=== PATIENT | male | born 1955 | race Caucasian/White ===

== ENCOUNTER 2024-09-18 10:20 | Emergency (ER) | payer MEDICARE, OTHER, SELFPAY ==
[2024-09-18 10:34] VITALS: BP 155/82; PULSE 69; RESP 18; TEMP 36.6; O2SAT 98; BMI 30.5
--- NOTE | 2024-09-18 10:38 | DI.US.S_ITS ---
PROCEDURE: US PERIPH VENOUS LOW EXTREM RT INDICATIONS: DVT rule out TECHNIQUE: Real-time imaging, as well as color and pulse Doppler interrogation, were performed of the lower extremity deep veins from the inguinal ligament to the popliteal fossa, with documentation of the visualized calf veins. COMPARISON: None. FINDINGS: The common femoral, femoral, popliteal, and the visualized calf veins are normally compressible, and free of intraluminal thrombus. Color and pulse Doppler demonstrate normal phasic intraluminal flow. There is normal augmentation response to distal compression maneuver. Note is made of a complex fluid collection at the anterior superior knee margin, measuring up to 0.8 x 6.4 x 12.0 cm. IMPRESSION: No DVT found. Complex fluid collection as discussed, potentially a focal hematoma that is involuting. Please correlate clinically. Dictated by: Kaleb Koroma M.D. on 09/18/2024 at 12:05 Approved by: Kaleb Koroma M.D. on 09/18/2024 at 12:06
--- NOTE | 2024-09-18 11:25 | DI.RAD.S_ITS ---
PROCEDURE: XR KNEE RT 3V INDICATIONS: knee pain TECHNIQUE: 3 views of the knee were acquired. COMPARISON: None. FINDINGS: Bones: No fractures or dislocations. No suspicious bony lesions. Soft tissues: Small suprapatellar joint effusion. No suspicious soft tissue calcifications. IMPRESSION: No acute bony abnormality but there is a small suprapatellar knee joint effusion. Dictated by: Kaleb Koroma M.D. on 09/18/2024 at 12:10 Approved by: Kaleb Koroma M.D. on 09/18/2024 at 12:11
--- NOTE | 2024-09-18 11:25 | DI.RAD.S_ITS ---
PROCEDURE: XR TIBIA FUBULA RT 2V INDICATIONS: knee pain TECHNIQUE: 2 views of the tibia and fibula were acquired. COMPARISON: None. FINDINGS: Bones: No fractures or dislocations. No suspicious bony lesions. Soft tissues: No suspicious soft tissue calcifications or masses. IMPRESSION: No acute bony abnormality. Dictated by: Kaleb Koroma M.D. on 09/18/2024 at 12:11 Approved by: Kaleb Koroma M.D. on 09/18/2024 at 12:11
[2024-09-18 12:26] LABS: Appearance Urine UA SL CLOUDY; Bilirubin Urine UA NEGATIVE (NEGATIVE); Color Urine UA RED; Glucose Urine UA TRACE g/dL (Negative); Ketones Urine UA NEGATIVE (NEGATIVE); Leukocyte Esterase Urine UA NEGATIVE (NEGATIVE); Nitrite Urine UA NEGATIVE (Negative); Occult Blood Urine UA 3+ (Negative); Protein Urine UA TRACE (Negative); RBC Urine >100/HPF (0-5/HPF); Specific Gravity Urine UA 1.015 (1.000-1.035); Urine Volume 10mL (spun); pH Urine UA 7.5 (4.5-8.0)
[2024-09-18 12:27] LABS: Bacteria Urine Occasional (0-1); Culture Indicated Urine Specimen Cultured; Squamous Epithelial Cell Urine None Seen (0-5/HPF); WBC Urine 1-5/HPF (0-5/HPF)
--- NOTE | 2024-09-18 12:35 | DI.CT.S_ITS ---
PROCEDURE: CT LE RT W CON INDICATIONS: knee effusion, swelling, pain, warmth TECHNIQUE: After the administration of intravenous contrast, 3 mm axial sections acquired of the right lower leg from the level of distal femoral shaft to bottom of foot, with coronal and sagittal reformats. COMPARISON: [facility], CR, XR KNEE RT 3V, 09/18/2024, 11:42. [facility], CR, XR TIBIA FIBULA RT 2V, 09/18/2024, 11:42. [facility], US, US PERIPH VENOUS LOW EXTREM RT, 09/18/2024, 11:31. FINDINGS: Image quality: Excellent. Bones: Alignment of right lower leg is anatomic. No fracture or dislocation. No suspicious bony lesions. Mild tricompartmental osteoarthritis is seen in right knee. Bore-tf-tamuvbcw osteoarthritic changes also seen throughout left foot most notably involving tibiotalar joint with suggestion of osteochondral injuries involving talar dome weight-bearing portion measures up to 9 x 6 mm in size. Well-defined plantar calcaneal enthesophyte is seen. No bony erosive changes or abnormal periosteal reaction to suggest osteomyelitis. Soft tissues: There is significant subcutaneous fat stranding and mild overlying skin thickening around right knee , right lower leg extending to dorsal aspect of right foot. No discrete drainable peripherally enhancing fluid collection is seen. Small to moderate right knee joint effusion is noted, no calcified intra-articular loose bodies. There is no enhancing soft tissue mass. No abnormal soft tissue calcifications. IMPRESSION: 1. Suggestion of extensive cellulitis around right knee, right lower leg extending to right foot. No discrete drainable abscess collection is seen. No enhancing soft tissue mass is noted. No abnormal soft tissue calcifications. No full-thickness muscle or tendon rupture. 2. 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 Osteochondral injuries involving weight-bearing portion of talar dome. No acute fracture or dislocation. No CT evidence of osteomyelitis. Dictated by: Kang Sandhu M.D. on 09/18/2024 at 13:47 Approved by: Kang Sandhu M.D. on 09/18/2024 at 14:03
[2024-09-18 13:03] LABS: Add Manual Diff / Slide Review NO; Basophils Absolute Auto 100 /uL (0-100); Basophils Percent Auto 0.8 % (0-2); Eosinophils Absolute Auto 300 /uL (0-450); Eosinophils Percent Auto 3.2 % (2-4); Hematocrit 39.8 % (41-53); Hemoglobin 13.5 g/dL (13.5-17.5); Lymphocytes Absolute Auto 700 /uL (1100-4500); Lymphocytes Percent Auto 7.7 % (25-40); Mean Corpuscular HGB Conc 33.8 % (30-36); Mean Corpuscular Volume 91.8 fL (80-100); Monocytes Absolute Auto 900 /uL (0-900); Monocytes Percent Auto 9.8 % (3-14); Neutrophils Absolute Auto 7300 /uL (1500-7000); Neutrophils Percent Auto 78.5 % (50-75); Platelet Count 362 X10^3/uL (150-400); Red Blood Cell Count 4.34 X10^6/uL (4.5-5.9); Red Cell Distribution Width 12.8 % (11.6-14.8); White Blood Cell Count 9.4 X10^3/uL (4.5-11.0)
[2024-09-18 13:13] LABS: Prothrombin Time 11.4 SECONDS (9.4-12.5)
[2024-09-18 13:15] LABS: PTT Partial Thromboplastin Tim 35 SECONDS (25.1-36.5)
[2024-09-18 13:21] LABS: Alanine Aminotransferase 25 IU/L (<50); Albumin 4.1 g/dL (3.5-5.0); Albumin Globulin Ratio 1.3 (1.0-2.8); Alkaline Phosphatase 92 U/L (38-126); Aspartate Aminotransferase 23 IU/L (17-59); BUN Creatinine Ratio 12.9 (6-22); Bilirubin Total 0.5 mg/dL (0.2-1.3); Blood Urea Nitrogen 11 mg/dL (9-20); C-Reactive Protein Quant 2.4 mg/dL (<1.0); Calcium 9.6 mg/dL (8.4-10.2); Carbon Dioxide 29 mmol/L (22-32); Chloride 102 mmol/L (98-107); Estimated Glomerular Filt Rate > 60 mL/min (>60); Globulin 3.1 g/dL (1.7-4.1); Glucose 110 mg/dL (80-110); HEMOLYSIS < 15 (0-50); Potassium 4.7 mmol/L (3.4-5.1); Sodium 139 mmol/L (137-145); Total Protein 7.2 g/dL (6.3-8.2); Uric Acid 6.3 mg/dL (3.5-8.5)
[2024-09-18 13:23] LABS: Erythrocyte Sedimentation Rate 48 MM/HR (0-15)
[2024-09-18 13:39] VITALS: TEMP 36.9
--- NOTE | 2024-09-18 13:55 | ED.EXTPRO ---
HPI - Extremity Problem <Alma Collins PA-C - Last Filed: 09/18/24 19:55> General Chief complaint: Extremity Problem,Nontraumatic Stated complaint: Right knee pain and swelling Time Seen by Provider: 09/18/24 11:17 Source: patient Mode of arrival: Ambulatory History of Present Illness HPI Narrative: 69-year-old male with past medical history prostate cancer diabetes, hypertension presents to the ED with 6 days of right-sided knee and lower leg pain. Patient states that the pain started spontaneously and he has noted swelling, warmth and pain in the right knee. Patient does have a history of gout, initially suspected this was a gout flare, took a leave with no improvement. Patient does state that this feels different than his usual gout pain. No trauma. No fever, chills, nausea, vomiting. No numbness, tingling, weakness. Patient endorses gross hematuria over the last 2 days. No dysuria, urinary frequency, urinary urgency. Patient spoke with his primary care doctor who sent him to the ED to rule out a DVT. Related Data Home Medications Medication Instructions Recorded Confirmed amlodipine 10 mg tablet 10 mg PO DAILY 09/20/24 09/20/24 escitalopram oxalate 10 mg tablet 10 mg PO DAILY 09/20/24 09/20/24 irbesartan 300 mg tablet 300 mg PO DAILY 09/20/24 09/20/24 metformin 500 mg tablet,extended 500 mg PO DAILY 09/20/24 09/20/24 release 24 hr rosuvastatin 10 mg tablet 10 mg PO DAILY 09/20/24 09/20/24 Previous Rx's Medication Instructions Recorded colchicine 0.6 mg tablet 0.6 mg PO BID 5 days #10 tabs 09/21/24 oxycodone 5 mg tablet 5 mg PO TID PRN pain #10 tabs 09/21/24 Allergies Allergy/AdvReac Type Severity Reaction Status Date / Time Penicillins Allergy Verified 09/18/24 10:34 Review of Systems <Alma Collins PA-C - Last Filed: 09/18/24 19:55> Constitutional Constitutional: Denies chills, Denies fatigue, Denies fever(s), Denies frequent falls, Denies lethargy and Denies weakness Eyes Eyes: Denies change in vision, Denies eye discharge, Denies irritation and Denies loss of vision ENT Ears, Nose, Mouth, and Throat: Denies change in voice, Denies dizziness, Denies neck pain, Denies sore throat and Denies throat swelling Cardiovascular Cardiovascular: Denies chest pain, Denies irregular heart rhythm, Denies lightheadedness, Denies palpitations, Denies dyspnea, Denies dyspnea on exertion and Denies orthopnea Respiratory Respiratory: Denies cough, Denies dyspnea, Denies dyspnea on exertion and Denies wheezing Gastrointestinal Gastrointestinal: Denies abdominal pain, Denies change in bowel habits, Denies diarrhea, Denies nausea and Denies vomiting Musculoskeletal Musculoskeletal: Denies neck pain and Denies numbness Comments: Right knee and lower leg pain, swelling Integumentary/Breasts Skin/Breast: Denies pruritus, Denies erythema, Denies rash and Denies wounds Neurologic Neurologic: Denies behavioral changes, Denies confusion, Denies dizziness, Denies frequent falls, Denies loss of vision, Denies numbness and Denies weakness Psychiatric Psychiatric: Denies anxiety, Denies behavioral changes, Denies confusion, Denies depression, Denies homicidal ideation and Denies suicidal ideation Endocrine Endocrine: Denies fatigue, Denies flushing and Denies palpitations Hematologic/Lymphatic Hematologic/Lymphatic: Denies easy bruising Allergic/Immunologic Allergic/Immunologic: Denies urticaria, Denies throat swelling and Denies wheezing Patient History <Alma Collins PA-C - Last Filed: 09/18/24 19:55> Social History household members: none Smoking Status: Former smoker alcohol intake: current Smoking Status: Former smoker alcohol intake frequency: holidays/special occasions only Substance Use Type: does not use Exam <Alma Collins PA-C - Last Filed: 09/18/24 19:55> Narrative Exam Narrative: Const General:?cooperative, healthy appearing and comfortable [facility] Head:?normal to inspection Ears:?hearing grossly normal bilaterally Nose:?external nose normal Face and sinus:?normal facial exam and sinuses nontender Mouth:?oral mucosae normal Throat:?posterior oropharynx normal Eyes General:?appearance normal, both eyes and all related structures Neck Neck:?normal visual inspection and no lymphadenopathy noted Resp Effort & Inspection:?normal respiratory effort Auscultation:?clear to auscultation bilaterally Cardio Rate:?regular rate Rhythm:?regular rhythm Musculoskeletal There is tenderness, swelling, warmth to the anterior right knee. No noticeable erythema. Range of motion is restricted with pain. Patient is ambulating with a cane. Neurovascularly intact. Neuro General:?patient alert, patient awake and patient oriented x3 Initial Vital Signs Initial Vital Signs: Vital Signs Temperature 97.8 F 09/18/24 10:34 Pulse Rate 69 09/18/24 10:34 Respiratory Rate 18 09/18/24 10:34 Blood Pressure 155/82 H 09/18/24 10:34 Pulse Oximetry 98 09/18/24 10:34 Oxygen Delivery Method Room Air 09/18/24 10:34 <Charlotte Siegel DO - Last Filed: 09/24/24 07:20> Initial Vital Signs Initial Vital Signs: Vital Signs Temperature 97.8 F 09/18/24 10:34 Pulse Rate 69 09/18/24 10:34 Respiratory Rate 18 09/18/24 10:34 Blood Pressure 155/82 H 09/18/24 10:34 Pulse Oximetry 98 09/18/24 10:34 Oxygen Delivery Method Room Air 09/18/24 10:34 Procedures <Charlotte Siegel DO - Last Filed: 09/24/24 07:20> Joint Aspiration Joint Asp./Inject. 1: Time Out Performed: Yes Side of body: right Joint Aspirated: knee Ultrasound Guidance: Yes Skin Prep: sterile prep and drape Local Anesthetic: lidocaine 2% Amount of anesthesia used (mL): 6 Needle Size Used: 18G Fluid Obtained: clear (slightly cloudy/yellow) Total fluid obtained (mL): 12 Patient Tolerated Procedure: Well and No complications Additional Comments: patient gave verbal consent, risks versus benefits discussed. Course <Alma Collins PA-C - Last Filed: 09/18/24 19:55> Orders Ordered: Discontinued Medications Clindamycin HCl (Clindamycin 150 Mg Capsule) 450 mg PO NOW ONE Stop: 09/18/24 19:51 Last Admin: 09/18/24 20:05 Dose: 450 mg Documented By: BS Vancomycin HCl 1,750 mg/ (Sodium Chloride) 500 mls @ 250 mls/hr IV NOW ONE Stop: 09/18/24 14:35 Last Admin: 09/18/24 16:20 Dose: Not Given Documented By: RB Cefepime HCl 2 gm/ Sodium (Chloride) 100 mls @ 200 mls/hr IV NOW ONE Stop: 09/18/24 14:35 Last Admin: 09/18/24 16:20 Dose: Not Given Documented By: RB Ketorolac Tromethamine (Ketorolac 30 Mg/Ml Vial) 15 mg IV NOW ONE Stop: 09/18/24 14:33 Last Admin: 09/18/24 14:35 Dose: 15 mg Documented By: FLJune Lidocaine HCl (Lidocaine 2% Inj Sdv 5ml) 10 ml INJ INTRA-OP ONE Stop: 09/18/24 16:11 Last Admin: 09/18/24 17:12 Dose: 10 ml Documented By: RB Morphine Sulfate (Morphine 4 Mg/Ml Inj) 4 mg IV NOW ONE Stop: 09/18/24 16:14 Last Admin: 09/18/24 16:25 Dose: 4 mg Documented By: RB Oxycodone/Acetaminophen (Oxycodone/Apap 5/325 Prepack) 1 bottle MISC DIRECTED ONE Stop: 09/18/24 19:54 Last Admin: 09/18/24 20:05 Dose: 1 bottle Documented By: BS Vital Signs Vital signs: Vital Signs - 8 hr 09/18/24 13:39 09/18/24 15:58 09/18/24 19:37 Temperature 98.4 F Pulse Rate 78 56 L Respiratory Rate 18 Blood Pressure 150/71 H Pulse Oximetry 98 95 Oxygen Delivery Method Room Air Room Air 09/18/24 19:37 Temperature Pulse Rate Respiratory Rate Blood Pressure 173/84 H Pulse Oximetry Oxygen Delivery Method <Charlotte Siegel, - Last Filed: 09/24/24 07:20> Orders Ordered: Discontinued Medications Clindamycin HCl (Clindamycin 150 Mg Capsule) 450 mg PO NOW ONE Stop: 09/18/24 19:51 Last Admin: 09/18/24 20:05 Dose: 450 mg Documented By: BS Vancomycin HCl 1,750 mg/ (Sodium Chloride) 500 mls @ 250 mls/hr IV NOW ONE Stop: 09/18/24 14:35 Last Admin: 09/18/24 16:20 Dose: Not Given Documented By: RB Cefepime HCl 2 gm/ Sodium (Chloride) 100 mls @ 200 mls/hr IV NOW ONE Stop: 09/18/24 14:35 Last Admin: 09/18/24 16:20 Dose: Not Given Documented By: RB Ketorolac Tromethamine (Ketorolac 30 Mg/Ml Vial) 15 mg IV NOW ONE Stop: 09/18/24 14:33 Last Admin: 09/18/24 14:35 Dose: 15 mg Documented By: ERLINDA Lidocaine HCl (Lidocaine 2% Inj Sdv 5ml) 10 ml INJ INTRA-OP ONE Stop: 09/18/24 16:11 Last Admin: 09/18/24 17:12 Dose: 10 ml Documented By: RB Morphine Sulfate (Morphine 4 Mg/Ml Inj) 4 mg IV NOW ONE Stop: 09/18/24 16:14 Last Admin: 09/18/24 16:25 Dose: 4 mg Documented By: RB Oxycodone/Acetaminophen (Oxycodone/Apap 5/325 Prepack) 1 bottle MISC DIRECTED ONE Stop: 09/18/24 19:54 Last Admin: 09/18/24 20:05 Dose: 1 bottle Documented By: BS Vital Signs Vital signs: Vital Signs - 8 hr 09/18/24 13:39 09/18/24 15:58 09/18/24 19:37 Temperature 98.4 F Pulse Rate 78 56 L Respiratory Rate 18 Blood Pressure 150/71 H Pulse Oximetry 98 95 Oxygen Delivery Method Room Air Room Air 09/18/24 19:37 Temperature Pulse Rate Respiratory Rate Blood Pressure 173/84 H Pulse Oximetry Oxygen Delivery Method MDM - Extremity (Nontraumatic) <Alma Collins PA-C - Last Filed: 09/18/24 19:55> Lab Data 09/18/24 12:55 09/18/24 12:55 Labs: Lab Results 09/18/24 09/18/24 09/18/24 Range/Units 12:10 12:55 17:20 WBC 9.4 (4.5-11.0) X10^3/uL RBC 4.34 L (4.5-5.9) X10^6/uL Hgb 13.5 (13.5-17.5) g/dL Hct 39.8 L (41-53) % MCV 91.8 (80-100) fL MCH 31.0 (26-34) PG MCHC 33.8 (30-36) % RDW 12.8 (11.6-14.8) % Plt Count 362 (150-400) X10^3/uL Neut % (Auto) 78.5 H (50-75) % Lymph % (Auto) 7.7 L (25-40) % [place] % (Auto) 9.8 (3-14) % Eos % (Auto) 3.2 (2-4) % Baso % (Auto) 0.8 (0-2) % Neut # (Auto) 7300 H (0123-5441) /uL Lymph # (Auto) 700 L (2876-1443) /uL [place] # (Auto) 900 (0-900) /uL Eos # (Auto) 300 (0-450) /uL Baso # (Auto) 100 (0-100) /uL ESR 48 H (0-15) MM/HR PT 11.4 (9.4-12.5) SECONDS INR 1.0 (0.9-1.3) APTT 35 (25.1-36.5) SECONDS Sodium 139 (137-145) mmol/L Potassium 4.7 (3.4-5.1) mmol/L Chloride 102 (98-107) mmol/L Carbon Dioxide 29 (22-32) mmol/L BUN 11 (9-20) mg/dL Creatinine 0.85 (0.66-1.25) mg/dL Estimated GFR > 60 (>60) mL/min BUN/Creatinine Ratio 12.9 (6-22) Glucose 110 (80-110) mg/dL Uric Acid 6.3 (3.5-8.5) mg/dL Calcium 9.6 (8.4-10.2) mg/dL Total Bilirubin 0.5 (0.2-1.3) mg/dL AST 23 (17-59) IU/L ALT 25 (<50) IU/L Alkaline Phosphatase 92 (38-126) U/L C-Reactive Protein 2.4 H (<1.0) mg/dL Total Protein 7.2 (6.3-8.2) g/dL Albumin 4.1 (3.5-5.0) g/dL Globulin 3.1 (1.7-4.1) g/dL Albumin/Globulin Ratio 1.3 (1.0-2.8) Urine Color Red Urine Appearance Sl cloudy Urine pH 7.5 (4.5-8.0) Ur Specific [place] 1.015 (1.000-1.035) Urine Protein Trace H (Negative) Urine Glucose (UA) Trace H (Negative) g/dL Urine Ketones Negative (NEGATIVE) Urine Occult Blood 3+ H (Negative) Urine Nitrate Negative (Negative) Urine Bilirubin Negative (NEGATIVE) Urine Urobilinogen 1.0 (0.2) E.U./dL Ur Leukocyte Esterase Negative (NEGATIVE) Urine RBC >100/hpf H (0-5/HPF) Urine WBC 1-5/hpf (0-5/HPF) Ur Squamous Epith Cells None seen (0-5/HPF) Urine Bacteria Occasional (0-1) (None) Ur Culture Indicated? Specimen cultured Vol Urine Centrifuged 10ml (spun) Fluid Color Yellow Fluid Appearance Cloudy Fluid RBC 1536 /uL Fld Tot Nucleated Cell 3603 /uL Fluid Neutrophils % 90 % Fluid Lymphocytes % 8 % Fluid Eosinophils % 0 % Fluid Basophils % 0 % Fluid Meso/Macro/[place] % 2 % Fluid Crystals None present (NONE) Body Fluid Clot No clots present MDM Narrative Medical decision making narrative: 69-year-old male with past medical history prostate cancer diabetes, hypertension presents to the ED with 6 days of right-sided knee and lower leg pain. Concern for DVT versus cellulitis versus gout versus musculoskeletal sprain/strain versus fracture/dislocation versus septic arthritis versus UTI versus other. Will obtain ultrasound, x-rays, labs, ESR, CRP, uric acid. Ultrasound was performed with no DVT found. Complex fluid collection, potentially a focal hematoma that is involuting. Knee x-ray shows no acute bony abnormality but there is a small suprapatellar knee joint effusion. Tib-fib x-ray without acute bony abnormality. CRP elevated 2.4, ESR elevated to 48. WBC and all other labs within normal limits. CT lower extremity was obtained which shows suggestion of extensive cellulitis around the right knee, right lower leg extending to the right foot. No discrete drainable abscess collection is seen. No enhancing soft tissue mass is noted. No abnormal soft tissue calcifications. No full-thickness muscle or tendon rupture. 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 No fracture/dislocation. No CT evidence of osteomyelitis. Given the setting of cellulitis along with a knee effusion, Dr. Starkey from ortho was consulted due to suspicion for septic arthritis.. He recommends arthrocentesis, holding off on any antibiotics until the arthrocentesis is resulted. Patient was given morphine for pain control. Arthrocentesis results as follows: Fluid total nucleated cells 3603. Fluid neutrophil percentage 90. Fluid RBCs 1536. No fluid crystals present. Gram stain with no organisms seen and moderate WBCs. Dr. Starkey was consulted again, agrees that results are not consistent with a septic joint. Patient treated for cellulitis. Patient given some pain medications. ED return precautions were discussed with patient. Patient verbalized understanding. Medical records reviewed: Yes <Charlotte Siegel DO - Last Filed: 09/24/24 07:20> Lab Data Labs: Lab Results 09/18/24 09/18/24 09/18/24 Range/Units 12:10 12:55 17:20 WBC 9.4 (4.5-11.0) X10^3/uL RBC 4.34 L (4.5-5.9) X10^6/uL Hgb 13.5 (13.5-17.5) g/dL Hct 39.8 L (41-53) % MCV 91.8 (80-100) fL MCH 31.0 (26-34) PG MCHC 33.8 (30-36) % RDW 12.8 (11.6-14.8) % Plt Count 362 (150-400) X10^3/uL Neut % (Auto) 78.5 H (50-75) % Lymph % (Auto) 7.7 L (25-40) % [place] % (Auto) 9.8 (3-14) % Eos % (Auto) 3.2 (2-4) % Baso % (Auto) 0.8 (0-2) % Neut # (Auto) 7300 H (2942-2478) /uL Lymph # (Auto) 700 L (8961-6636) /uL [place] # (Auto) 900 (0-900) /uL Eos # (Auto) 300 (0-450) /uL Baso # (Auto) 100 (0-100) /uL ESR 48 H (0-15) MM/HR PT 11.4 (9.4-12.5) SECONDS INR 1.0 (0.9-1.3) APTT 35 (25.1-36.5) SECONDS Sodium 139 (137-145) mmol/L Potassium 4.7 (3.4-5.1) mmol/L Chloride 102 (98-107) mmol/L Carbon Dioxide 29 (22-32) mmol/L BUN 11 (9-20) mg/dL Creatinine 0.85 (0.66-1.25) mg/dL Estimated GFR > 60 (>60) mL/min BUN/Creatinine Ratio 12.9 (6-22) Glucose 110 (80-110) mg/dL Uric Acid 6.3 (3.5-8.5) mg/dL Calcium 9.6 (8.4-10.2) mg/dL Total Bilirubin 0.5 (0.2-1.3) mg/dL AST 23 (17-59) IU/L ALT 25 (<50) IU/L Alkaline Phosphatase 92 (38-126) U/L C-Reactive Protein 2.4 H (<1.0) mg/dL Total Protein 7.2 (6.3-8.2) g/dL Albumin 4.1 (3.5-5.0) g/dL Globulin 3.1 (1.7-4.1) g/dL Albumin/Globulin Ratio 1.3 (1.0-2.8) Urine Color Red Urine Appearance Sl cloudy Urine pH 7.5 (4.5-8.0) Ur Specific [place] 1.015 (1.000-1.035) Urine Protein Trace H (Negative) Urine Glucose (UA) Trace H (Negative) g/dL Urine Ketones Negative (NEGATIVE) Urine Occult Blood 3+ H (Negative) Urine Nitrate Negative (Negative) Urine Bilirubin Negative (NEGATIVE) Urine Urobilinogen 1.0 (0.2) E.U./dL Ur Leukocyte Esterase Negative (NEGATIVE) Urine RBC >100/hpf H (0-5/HPF) Urine WBC 1-5/hpf (0-5/HPF) Ur Squamous Epith Cells None seen (0-5/HPF) Urine Bacteria Occasional (0-1) (None) Ur Culture Indicated? Specimen cultured Vol Urine Centrifuged 10ml (spun) Fluid Color Yellow Fluid Appearance Cloudy Fluid RBC 1536 /uL Fld Tot Nucleated Cell 3603 /uL Fluid Neutrophils % 90 % Fluid Lymphocytes % 8 % Fluid Eosinophils % 0 % Fluid Basophils % 0 % Fluid Meso/Macro/[place] % 2 % Fluid Crystals None present (NONE) Body Fluid Clot No clots present Discharge Plan Departure Patient Disposition: Home Clinical Impression: Cellulitis Instructions: DI for Cellulitis -- Adult Activity Restrictions/Additional Instructions: You were evaluated in the ED today for right-sided knee pain and swelling. It appears that you have a skin infection/cellulitis for which you are being prescribed antibiotics. You tested negative for a knee joint infection. You may take ibuprofen, Tylenol for pain control. You have also been given a few doses of narcotic pain medications. Please follow-up with your PCP as soon as possible. Return to the ED if you have worsening symptoms. Prescriptions: No Action amlodipine 10 mg tablet 10 mg PO DAILY metformin 500 mg tablet extended release 24 hr 500 mg PO DAILY irbesartan 300 mg tablet 300 mg PO DAILY escitalopram oxalate 10 mg tablet 10 mg PO DAILY rosuvastatin 10 mg tablet 10 mg PO DAILY colchicine 0.6 mg tablet 0.6 mg PO BID 5 Days Qty: 10 0RF oxycodone 5 mg tablet 5 mg PO TID PRN (Reason: pain) Qty: 10 0RF Referrals: Ramakrishna Becerra MD [Primary Care Provider] - Stand Alone Forms: Patient Portal/API/Survey ED Sign-out <Charlotte Siegel DO - Last Filed: 09/24/24 07:20> Cosign ED Attending Bernardaature Attestation: I was immediately available in the department for consultation.
--- NOTE | 2024-09-18 14:22 | PC.NURSE ---
I am hungry, thirsty, exhausted and in pain Provided warm blanket, will discuss with Provider pain management. Patient has water at bedside.
[2024-09-18] MEDS: KETOROLAC 30 MG/ML VIAL 15 MG IV (14:35)
--- NOTE | 2024-09-18 15:49 | PC.NURSE ---
Antibiotic therapy not initiated due to provider wanting to wait for CT and potiential tap of the joint prior to administration of antibiotics.
[2024-09-18 15:58] VITALS: BP 150/71; PULSE 78; RESP 18; O2SAT 98
[2024-09-18] MEDS: MORPHINE 4 MG/ML INJ IV (16:25)
[2024-09-18] MEDS: LIDOCAINE 2% INJ SDV 5ML 10 ML INJ (17:12)
[2024-09-18 17:51] LABS: Body Fluid Red Blood Cells 1536 /uL; Body Fluid Tot Nucleated Cells 3603 /uL
[2024-09-18 18:20] LABS: Body Fluid Appearance CLOUDY; Body Fluid Clotted? NO CLOTS PRESENT; Body Fluid Color YELLOW
[2024-09-18 18:21] LABS: Basophils Body Fluid 0 %; Eosinophils Body Fluid 0 %; Lymphocytes Body Fluid 8 %; MESO/MACRO/MONO Body Fluid 2 %; Neutrophils Body Fluid 90 %
[2024-09-18 18:35] LABS: Crystals Body Fluid - IN-HOUSE NONE Present
[2024-09-18 19:37] VITALS: BP 173/84; PULSE 56; O2SAT 95
[2024-09-18 19:50] VITALS: TEMP 36.5
[2024-09-18] MEDS: OXYCODONE/APAP 5/325 PREPACK 1 BOTTLE MISC (20:05)
[2024-09-18] MEDS: CLINDAMYCIN 150 MG CAPSULE 450 MG PO (20:05)
[2024-09-18 20:11] VITALS: TEMP 36.5
== END 2024-09-18 20:11 | disposition home or self-care (01) ==
PROVIDERS: Emergency Provider Student in an Organized Health Care Education/Training Program; PCP Family Medicine
DX: L03.115 Cellulitis of right lower limb (principal)
CPT/HCPCS: 36415; 73562; 73590; 73701; 80053; 81001; 84550; 85025; 85610; 85651; 85730; 86140; 87040; 87070; 87075; 87086; 87205; 89051; 89060; 93971; 99285; J1885; J2270; Q9967

== ENCOUNTER 2024-09-20 15:34 | Observation (INO) | payer MEDICARE, OTHER, SELFPAY ==
[2024-09-20 16:09] VITALS: BMI 28.3
--- NOTE | 2024-09-20 16:33 | DI.US.S_ITS ---
PROCEDURE: US PERIPH VENOUS LOW EXTREM RT INDICATIONS: EDEMA. DVT US AND CT 2 DAYS AGO. TECHNIQUE: Real-time imaging, as well as color and pulse Doppler interrogation, were performed of the lower extremity deep veins from the inguinal ligament to the popliteal fossa, with documentation of the visualized calf veins. COMPARISON: [facility], CT, CT LE RT W CON, 09/18/2024, 13:09. [facility], US, US PERIPH VENOUS LOW EXTREM RT, 09/18/2024, 11:31. FINDINGS: The common femoral, femoral, popliteal, and the visualized calf veins are normally compressible, and free of intraluminal thrombus. Color and pulse Doppler demonstrate normal phasic intraluminal flow. There is normal augmentation response to distal compression maneuver. There is diffuse subcutaneous edema. There is a small-moderate knee joint effusion. IMPRESSION: 1. No findings of lower extremity deep venous thrombosis. 2. Diffuse subcutaneous edema, which can be seen with cellulitis, lymphedema, or venous congestion. Dictated by: John Davidson M.D. on 09/20/2024 at 18:00 Approved by: John Davidson M.D. on 09/20/2024 at 18:03
--- NOTE | 2024-09-20 16:35 | P.HP_ITS ---
History of Present Illness History of Present Illness Date Patient Seen: 09/20/24 Time Patient Seen: 16:35 Chief complaint: right lower extremity cellulitis Narrative: Patient is a 69-year-old male who recently moved to [place]. 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 He was seen in the ED on September 18 at which time he was diagnosed with cellulitis. There was some type of aspiration of the prepatellar bursa. The patient was sent on clindamycin because of a PCN allergy. He was had really no improvement. The legs not really red, but it was swollen from the knee down to the ankle. He notes a history of gout, and this felt similar. The difference, is that his leg does not usually swollen gout. He denies any fevers, or chills. No injury to the skin in this region. He had a CT scan in the ED which indicated extensive cellulitis around the right knee and right lower leg extending to the foot. No evidence of osteo. An ultrasound was also obtained with a complex fluid collection noted. Dr. Doug Leon orthopedics was consulted from the ED. the situation has not improved. He was a history of prostate cancer with prostatectomy, diabetes, and hypertension. Nonsmoker, nondrinker. He moved here from [place]. [facility] Social History household members: none Smoking Status: Former smoker alcohol intake: current Meds Home Medications and Allergies Home Medications Medication Instructions Recorded Confirmed Type clindamycin HCl 150 mg capsule 450 mg (3 x 150 mg) PO TID 5 days 09/18/24 09/20/24 Rx #45 caps amlodipine 10 mg tablet 10 mg PO DAILY 09/20/24 09/20/24 History escitalopram oxalate 10 mg tablet 10 mg PO DAILY 09/20/24 09/20/24 History irbesartan 300 mg tablet 300 mg PO DAILY 09/20/24 09/20/24 History metformin 500 mg tablet,extended 500 mg PO DAILY 09/20/24 09/20/24 History release 24 hr rosuvastatin 10 mg tablet 10 mg PO DAILY 09/20/24 09/20/24 History Allergies Allergy/AdvReac Type Severity Reaction Status Date / Time Penicillins Allergy Verified 09/18/24 10:34 Review of Systems Review of Systems Narrative: All else reviewed and otherwise unremarkable except as noted in the history and physical. Exam Narrative Exam Narrative: NAD, alert and oriented, fluent speech, calm. Normocephalic skull, EOMI, anicteric sclera, symmetric pupils. Oropharynx unremarkable, no droop. Neck supple, midline trachea, no adenopathy. Lungs clear, normal rate and effort. Heart regular, no murmur gallop or rub. Abdomen is soft, non distended and non tender. Extremities: Right knee and leg are swollen and slightly warm but not red. No fluctuance. Good peripheral pulses palpated. There is some pedal edema as well. Skin is free of rash or lesions. Joints are not swollen or deformed. Judgment appears to be normal. Objective Imaging September 18 multiple studies:: Radiologist's impression: Leg CT: CT lower extremity was obtained which shows suggestion of extensive cellulitis around the right knee, right lower leg extending to the right foot. No discrete drainable abscess collection is seen. No enhancing soft tissue mass is noted. No abnormal soft tissue calcifications. No full-thickness muscle or tendon rupture. 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 No fracture/dislocation. No CT evidence of osteomyelitis. Leg ultrasound: Ultrasound was performed with no DVT found. Complex fluid collection, potentially a focal hematoma that is involuting. Labs Labs: Pending. Assessment & Plan Assessment & Plan narrative: 1. Right leg cellulitis, present on admission and active. 2. Possible gout, present on admission and active. 3. DM 2, present on admission and active. 4. Hypertension, present on admission and active. 5. Remote prostate cancer with prostatectomy and radiation therapy, stable. Plan: -IV antibiotics with ceftriaxone, MRSA swab -elevate leg -repeat leg ultrasound -correctional insulin -carb controlled diet FORTINO September 21 if clinically improved and ultrasound unremarkable Full code, confirmed at admit [place] proxy decision maker, paperwork has not been filled out. Time-Based Coding :: 35 min spent with patient and on the chart (including review of chart, obtaining history, exam, reviewing outside data, placing orders, documenting exam and treatment plan, and counseling patient) on 09/20. Quality MIPS - Admit The patient?s Advance Care plan is not present because I confirmed today that the patient does not wish or was not able to name a surrogate decision maker or provide an Advance Care Plan.: Yes MIPS - Meds 'Current medications' to include all prescriptions, [id number] products, herbals, cannabis/cannabidiol products, and vitamin/mineral/dietary (nutritional) supplements. I have utilized all available resources to obtain, update, or review the patient?s current medications. [If Yes, STOP here]: Yes
[2024-09-20] MEDS: cefTRIAXone 2,000 MG in SODIUM CHLORIDE 0.9% 100 ML 200 MG IV (17:52)
[2024-09-20 19:00] VITALS: BP 143/74; PULSE 65; RESP 16; TEMP 36.3; O2SAT 92
[2024-09-20 21:28] VITALS: BP 131/78; PULSE 63; RESP 18; TEMP 36.3; O2SAT 94
[2024-09-20] MEDS: ACETAMINOPHEN 325 MG TABLET 650 MG PO (21:46)
[2024-09-20] MEDS: HEPARIN 5,000 UNIT/ML VIAL 5000 UNIT SUBCUT (21:46)
[2024-09-20 22:18] LABS: MRSA (Nasal) PCR NOT DETECTED (Not Detect)
[2024-09-20] MEDS: ZOLPIDEM 5 MG TABLET PO (23:11)
[2024-09-20] MEDS: OXYCODONE 5 MG/5 ML ORAL SOLUTION PO (23:17)
[2024-09-21 05:44] LABS: Add Manual Diff / Slide Review NO; Basophils Absolute Auto 0 /uL (0-100); Basophils Percent Auto 0.7 % (0-2); Eosinophils Absolute Auto 300 /uL (0-450); Eosinophils Percent Auto 5.4 % (2-4); Hematocrit 35.6 % (41-53); Hemoglobin 12.3 g/dL (13.5-17.5); Lymphocytes Absolute Auto 1000 /uL (1100-4500); Lymphocytes Percent Auto 17.8 % (25-40); Mean Corpuscular HGB Conc 34.7 % (30-36); Mean Corpuscular Hemoglobin 31.7 PG (26-34); Mean Corpuscular Volume 91.2 fL (80-100); Monocytes Absolute Auto 800 /uL (0-900); Monocytes Percent Auto 14.4 % (3-14); Neutrophils Absolute Auto 3600 /uL (1500-7000); Neutrophils Percent Auto 61.7 % (50-75); Platelet Count 336 X10^3/uL (150-400); Red Cell Distribution Width 12.7 % (11.6-14.8); White Blood Cell Count 5.9 X10^3/uL (4.5-11.0)
[2024-09-21 06:04] LABS: BUN Creatinine Ratio 20.9 (6-22); Blood Urea Nitrogen 18 mg/dL (9-20); Calcium 9.3 mg/dL (8.4-10.2); Carbon Dioxide 27 mmol/L (22-32); Chloride 103 mmol/L (98-107); Estimated Glomerular Filt Rate > 60 mL/min (>60); Glucose 101 mg/dL (80-110); HEMOLYSIS < 15 (0-50); Potassium 4.2 mmol/L (3.4-5.1); Sodium 138 mmol/L (137-145)
[2024-09-21 08:00] VITALS: BP 118/74; PULSE 63; RESP 16; TEMP 36.9; O2SAT 92
[2024-09-21 08:03] VITALS: BP 118/74
[2024-09-21] MEDS: AMLODIPINE 5 MG TABLET 10 MG PO (08:03)
[2024-09-21] MEDS: LOSARTAN 50 MG TABLET 100 MG PO (08:03)
[2024-09-21] MEDS: ATORVASTATIN 20 MG TABLET PO (08:04)
[2024-09-21] MEDS: ESCITALOPRAM 10 MG TABLET PO (08:04)
[2024-09-21] MEDS: HEPARIN 5,000 UNIT/ML VIAL 5000 UNIT SUBCUT (08:05)
--- NOTE | 2024-09-21 11:00 | CM.DANOTE ---
DCP Assessment Note: Pt is a 69yo male, resident of [place], is admitted for cellulitius and suspected gout. Pt lives in a house, alone. Pt's Primary Care Provider is Dr. Ramakrishna Becerra MD and insurance is Medicare and [employer]. Reviewed chart and team rounds for pt's medical status and initial discharge needs. DCP met w/patient at bedside; introduced self and role. Patient was found in chair, alert and oriented, cooperative with assessment. Pt confirmed living situation and good support in niece who lives locally. Pt expressed preference in discharge home, declined any needs for discharge. Plan: Discharge orders are in, medically cleared to discharge home with niece to transport. CM team will follow closely for coordination of discharge plans. PERCY Arcos Discharge Planning/Care Management CM Discharge Assessment Start: 09/21/24 10:55 Freq: Status: Active Protocol: Document 09/21/24 10:55 MW (Rec: 09/21/24 10:59 MW [id number]) Discharge Planning Assessment Assigned Commercial Account Manager BRENDA Daniels DPOA/Assigned Designee Name Mj Alexander Contact Information [phone] Advance Directives? No History Provided By Patient,Medical Record Has Patient been admitted in last 30 No days? Prior Living Arrangements House Comment [place] Household Members none Type of transporation used prior to Drives own vehicle admit Discharge Plan Home Whiteboard Updated in Patient Room with Yes name and ext. # of Commercial Account Manager Comment [phone] Review Status In Process Please Provide Date Initial DC 09/21/24 Assessment Was Performed
--- NOTE | 2024-09-21 11:30 | PC.NURSE ---
D/c instructions reviewed with Pt. Reviewed new Rx medications. Dr. Chaudhry came to bedside to discuss new Rx for pain. Pt agreeable to d/c. IV removed. Pt exited via w/c with RN to private vehicle.
--- NOTE | 2024-09-21 12:51 | PM.DS.1 ---
History of Present Illness History of Present Illness Date Patient Seen: 09/21/24 Time Patient Seen: 08:00 Date of Onset of Symptoms: 09/20/24 Chief complaint: right lower extremity cellulitis Narrative: Narrative: Patient is a 69-year-old male who recently moved to [place]. 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 He was seen in the ED on September 18 at which time he was diagnosed with cellulitis. There was some type of aspiration of the prepatellar bursa. The patient was sent on clindamycin because of a PCN allergy. He was had really no improvement. The legs not really red, but it was swollen from the knee down to the ankle. He notes a history of gout, and this felt similar. The difference, is that his leg does not usually swollen gout. He denies any fevers, or chills. No injury to the skin in this region. He had a CT scan in the ED which indicated extensive cellulitis around the right knee and right lower leg extending to the foot. No evidence of osteo. An ultrasound was also obtained with a complex fluid collection noted. Dr. Doug Leon orthopedics was consulted from the ED. the situation has not improved. He was a history of prostate cancer with prostatectomy, diabetes, and hypertension. Nonsmoker, nondrinker. He moved here from [place]. Discharge Providers Provider Date of admission: 09/20/24 15:34 Discharge Date: 09/21/24 Primary care physician: Ramakrishna Becerra MD Discharge provider: Ross Chaudhry MD Summary Hospital Course Discharge Diagnosis: 1. Right knee pain and swelling, presumed gout, cannot rule out cellulitis 2. History of recurrent gout 3. Diabetes mellitus, type 2 4. Hypertension 5. Remote history of prostate cancer Hospital Course: The patient was admitted and administered IV antibiotics and demonstrated significant improvement over the 1st 24 hours. He noted multiple recurrent episodes of gout in that knee and felt that this was most consistent with gout, and was interested in outpatient therapy with colchicine, of which she has an ample supply at home. He was also advised to complete a course of antibiotic prescribed as an outpatient. Cultures remain negative throughout the hospitalization. No other issues arose. Close outpatient follow-up was advised. Status at Discharge Cognitive/behavioral status at discharge: oriented Functional status at discharge: independent ambulation Overall status at discharge: patient is progressing back to baseline Time Spent with Patient Time spent: Greater than 30 minutes Exam Vital Signs (past 8 hours): - 09/21/24 08:00 09/21/24 08:03 Temperature 98.4 F Pulse Rate 63 Respiratory Rate 16 Blood Pressure 118/74 118/74 Pulse Oximetry 92 Oxygen Flow Rate 0 Oxygen Flow Rate 0 Narrative Exam Narrative: NAD, alert and oriented, fluent speech, calm. Normocephalic skull, EOMI, anicteric sclera, symmetric pupils. Oropharynx unremarkable, no droop. Neck supple, midline trachea, no adenopathy. Lungs clear, normal rate and effort. Heart regular, no murmur gallop or rub. Abdomen is soft, non distended and non tender. Extremities: Right knee and leg are mildly swollen and slightly warm without erythema. No fluctuance. Good peripheral pulses palpated. There is some pedal edema as well. Skin is free of rash or lesions. Joints are not swollen or deformed. Judgment appears to be normal. Objective Imaging +: Radiologist's impression: 1. Right lower extremity ultrasound 09/18/2024: No DVT found. Complex fluid collection as discussed, potentially a focal hematoma that is involuting. Please correlate clinically. 2. Right knee x-ray 09/18/2024: No acute bony abnormality but there is a small suprapatellar knee joint effusion. 3. Right tibia-fibula x-ray 09/18/2024: No acute bony abnormality. 4. Right lower extremity CT 09/18/2024: 1. Suggestion of extensive cellulitis around right knee, right lower leg extending to right foot. No discrete drainable abscess collection is seen. No enhancing soft tissue mass is noted. No abnormal soft tissue calcifications. No full-thickness muscle or tendon rupture. 2. 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 Osteochondral injuries involving weight-bearing portion of talar dome. No acute fracture or dislocation. No CT evidence of osteomyelitis. 5. Right lower extremity ultrasound 09/20/2024: 1. No findings of lower extremity deep venous thrombosis. 2. Diffuse subcutaneous edema, which can be seen with cellulitis, lymphedema, or venous congestion. Labs 09/21/24 05:15 09/21/24 05:15 Labs: Laboratory Results - last 24 hr 09/20/24 09/21/24 20:50 05:15 WBC 5.9 RBC 3.90 L Hgb 12.3 L Hct 35.6 L MCV 91.2 MCH 31.7 MCHC 34.7 RDW 12.7 Plt Count 336 Neut % (Auto) 61.7 Lymph % (Auto) 17.8 L Sevier % (Auto) 14.4 H Eos % (Auto) 5.4 H Baso % (Auto) 0.7 Neut # (Auto) 3600 Lymph # (Auto) 1000 L Sevier # (Auto) 800 Eos # (Auto) 300 Baso # (Auto) 0 Sodium 138 Potassium 4.2 Chloride 103 Carbon Dioxide 27 BUN 18 Creatinine 0.86 Estimated GFR > 60 BUN/Creatinine Ratio 20.9 Glucose 101 Calcium 9.3 Nasal Screen MRSA (PCR) Not detected [facility] Social History household members: none Smoking Status: Former smoker alcohol intake: current Discharge Plan Discharge Plan Patient Disposition: Home Discharge orders & Medications Prescriptions: New colchicine 0.6 mg tablet 0.6 mg PO BID 5 Days Qty: 10 0RF oxycodone 5 mg tablet 5 mg PO TID PRN (Reason: pain) Qty: 10 0RF Continued clindamycin HCl 150 mg capsule 450 mg PO TID 5 Days Qty: 45 0RF amlodipine 10 mg tablet 10 mg PO DAILY metformin 500 mg tablet extended release 24 hr 500 mg PO DAILY irbesartan 300 mg tablet 300 mg PO DAILY escitalopram oxalate 10 mg tablet 10 mg PO DAILY rosuvastatin 10 mg tablet 10 mg PO DAILY Follow up/Referrals: Ramakrishna Becerra MD [Primary Care Provider] - Visit Report/Discharge Packet Instructions: Gout Stand Alone Forms: Patient Portal/API Discharge Data Primary Care Provider: Ramakrishna Becerra Quality MIPS - Admit I confirm the patient?s Advance Care Plan is present, Code status is documented, Surrogate decision maker is in patient?s record [If Yes, STOP here]: Yes MIPS - Meds 'Current medications' to include all prescriptions, gjtj-duh-gwowtmb products, herbals, cannabis/cannabidiol products, and vitamin/mineral/dietary (nutritional) supplements. I have utilized all available resources to obtain, update, or review the patient?s current medications. [If Yes, STOP here]: Yes MIPS - DC The patient has a history of heart transplant or Left Ventricular Assist Device (LVAD). If yes, STOP here.: No The patient has current or prior documentation of left ventricular ejection fraction (LVEF) less than or equal to 40%, or moderate or severely depressed left ventricular systolic function.: No A. The patient was prescribed or already taking an Angiotensin-Converting Enzyme (ALANNA) Inhibitor, or Angiotensin Receptor Anali (ARB).: No B. The patient was prescribed or already taking a beta-anali. [If Yes to Both A & B, STOP here]: No Patient not prescribed/taking ALANNA or ARB, no reason given.: No Patient not prescribed/taking beta-anali, no reason given.: No PROFEE Charge Codes Discharge inpatient/observation: [id number]
--- NOTE | 2024-12-05 13:40 | PC.NURSE ---
LATE ENTRY, ON 09/20/24 CEFTRIAXONE WAS INFUSED INTO PATIENT STARTED AT 17:52 AND COMPLETED AT 18:30 ON 09/20/24
== END 2024-09-21 10:30 | disposition home or self-care (01) | DRG 603 ==
PROVIDERS: Admitting Provider Hospitalist; PCP Family Medicine; Referring Provider Hospitalist; Visit Provider Hospitalist
DX: M25.561 Pain in right knee (principal); Z85.46 Personal history of malignant neoplasm of prostate; E11.9 Type 2 diabetes mellitus without complications; I10 Essential (primary) hypertension; Z79.84 Long term (current) use of oral hypoglycemic drugs; L03.115 Cellulitis of right lower limb
CPT/HCPCS: 20610; 36415; 73562; 73590; 73701; 80048; 80053; 81001; 82962; 84550; 85025; 85610; 85651; 85730; 86140; 87040; 87070; 87075; 87086; 87205; 87797; 89051; 89060; 93971; 96365; 96372; 96374; 96375; 99285; G0378; G0379; J0696; J1644; J1885; J2270; Q9967

== ENCOUNTER 2024-10-15 14:13 | Emergency (ER) | payer MEDICARE, OTHER, SELFPAY ==
[2024-10-15 14:23] VITALS: BP 132/70; PULSE 61; RESP 18; TEMP 36.4; O2SAT 97; BMI 29.7
--- NOTE | 2024-10-15 14:30 | DI.RAD.S_ITS ---
PROCEDURE: XR ANKLE LT MIN 3V INDICATIONS: pain/swelling TECHNIQUE: 3 views of the ankle were acquired. COMPARISON: None. FINDINGS: Bones: No fractures or dislocations. Ankle mortise is normally aligned. No suspicious bony lesions. Soft tissues: Swelling at the lateral malleolus. No significant tibiotalar joint effusion. Achilles tendon appears normal. IMPRESSION: No acute fracture. Swelling at the lateral malleolus. Dictated by: Too Moreira M.D. on 10/15/2024 at 15:26 Approved by: Too Moreira M.D. on 10/15/2024 at 15:27
[2024-10-15 17:21] VITALS: BP 136/67; PULSE 72; RESP 18; TEMP 36.7; O2SAT 99
--- NOTE | 2024-10-15 18:57 | ED_ITS ---
HPI - Extremity Problem <Alma Collins PA-C - Last Filed: 10/15/24 19:07> General Chief complaint: Extremity Problem,Nontraumatic Stated complaint: left foot px Time Seen by Provider: 10/15/24 15:51 Source: patient Mode of arrival: Wheelchair History of Present Illness HPI Narrative: 69-year-old male presents to the ED with 1 day of ankle pain. Patient states he went [place] on the [place]. Denies any known trauma. States that he woke up this morning with a very painful left ankle. States that it is hard to bear weight and walk on it. No numbness, tingling, weakness. Patient also started taking some clindamycin for a suspected cellulitis of his right foot. He states that he self-diagnosed himself with cellulitis yesterday and has taken3 doses of clindamycin from a prescription he had left from a prior infection. He states that he noticed that he had some shiny skin on the lateral aspect of his right ankle. No fever, chills, is, tingling, weakness. Related Data Home Medications Medication Instructions Recorded Confirmed amlodipine 10 mg tablet 10 mg PO DAILY 09/20/24 09/20/24 escitalopram oxalate 10 mg tablet 10 mg PO DAILY 09/20/24 09/20/24 irbesartan 300 mg tablet 300 mg PO DAILY 09/20/24 09/20/24 metformin 500 mg tablet,extended 500 mg PO DAILY 09/20/24 09/20/24 release 24 hr rosuvastatin 10 mg tablet 10 mg PO DAILY 09/20/24 09/20/24 Previous Rx's Medication Instructions Recorded oxycodone 5 mg tablet 5 mg PO TID PRN pain #10 tabs 09/21/24 Allergies Allergy/AdvReac Type Severity Reaction Status Date / Time Penicillins Allergy Verified 09/18/24 10:34 Review of Systems <Alma Collins PA-C - Last Filed: 10/15/24 19:07> Constitutional Constitutional: Denies chills, Denies fatigue, Denies fever(s), Denies frequent falls, Denies lethargy and Denies weakness Eyes Eyes: Denies change in vision, Denies eye discharge, Denies irritation and Denies loss of vision ENT Ears, Nose, Mouth, and Throat: Denies change in voice, Denies dizziness, Denies neck pain, Denies sore throat and Denies throat swelling Cardiovascular Cardiovascular: Denies chest pain, Denies irregular heart rhythm, Denies lightheadedness, Denies palpitations, Denies dyspnea, Denies dyspnea on exertion and Denies orthopnea Respiratory Respiratory: Denies cough, Denies dyspnea, Denies dyspnea on exertion and Denies wheezing Gastrointestinal Gastrointestinal: Denies abdominal pain, Denies change in bowel habits, Denies diarrhea, Denies nausea and Denies vomiting Musculoskeletal Musculoskeletal: Denies neck pain and Denies numbness Comments: left ankle pain Integumentary/Breasts Skin/Breast: Denies pruritus, Denies erythema, Denies rash and Denies wounds Neurologic Neurologic: Denies behavioral changes, Denies confusion, Denies dizziness, Denies frequent falls, Denies loss of vision, Denies numbness and Denies weakness Psychiatric Psychiatric: Denies anxiety, Denies behavioral changes, Denies confusion, Denies depression, Denies homicidal ideation and Denies suicidal ideation Endocrine Endocrine: Denies fatigue, Denies flushing and Denies palpitations Hematologic/Lymphatic Hematologic/Lymphatic: Denies easy bruising Allergic/Immunologic Allergic/Immunologic: Denies urticaria, Denies throat swelling and Denies wheezing Patient History <Alma Collins PA-C - Last Filed: 10/15/24 19:07> Social History household members: none Smoking Status: Former smoker alcohol intake: current Smoking Status: Former smoker alcohol intake frequency: holidays/special occasions only Substance Use Type: does not use Exam <Alma Collins PA-C - Last Filed: 10/15/24 19:07> Narrative Exam Narrative: Const General:?cooperative, healthy appearing and comfortable [facility] Head:?normal to inspection Ears:?hearing grossly normal bilaterally Nose:?external nose normal Face and sinus:?normal facial exam and sinuses nontender Mouth:?oral mucosae normal Throat:?posterior oropharynx normal Eyes General:?appearance normal, both eyes and all related structures Neck Neck:?normal visual inspection and no lymphadenopathy noted Resp Effort & Inspection:?normal respiratory effort Auscultation:?clear to auscultation bilaterally Cardio Rate:?regular rate Rhythm:?regular rhythm Musculoskeletal There is some tenderness to palpation and swelling of the lateral malleolus of the left ankle. No tenderness of the left foot. No erythema, deformities, bruising noted. Neurovascularly in tact. Right ankle appears normal with no swelling, tenderness to palpation, erythema, warmth. Neuro General:?patient alert, patient awake and patient oriented x3 Initial Vital Signs Initial Vital Signs: Vital Signs Temperature 97.6 F 10/15/24 14:23 Pulse Rate 61 10/15/24 14:23 Respiratory Rate 18 10/15/24 14:23 Blood Pressure 132/70 10/15/24 14:23 Pulse Oximetry 97 10/15/24 14:23 Oxygen Delivery Method Room Air 10/15/24 14:23 <Renita Mott DO - Last Filed: 10/15/24 21:24> Initial Vital Signs Initial Vital Signs: Vital Signs Temperature 97.6 F 10/15/24 14:23 Pulse Rate 61 10/15/24 14:23 Respiratory Rate 18 10/15/24 14:23 Blood Pressure 132/70 10/15/24 14:23 Pulse Oximetry 97 10/15/24 14:23 Oxygen Delivery Method Room Air 10/15/24 14:23 Course <Alma Collins PA-C - Last Filed: 10/15/24 19:07> Orders Ordered: ED Orders 10/15/24 14:30 XR ankle LT min 3V Stat Vital Signs Vital signs: Vital Signs - 8 hr 10/15/24 14:23 10/15/24 17:21 Temperature 97.6 F 98.1 F Pulse Rate 61 72 Respiratory Rate 18 18 Blood Pressure 132/70 136/67 Pulse Oximetry 97 99 Oxygen Delivery Method Room Air Room Air <DO Elvis Soares Last Filed: 10/15/24 21:24> Orders Ordered: ED Orders 10/15/24 14:30 XR ankle LT min 3V Stat Vital Signs Vital signs: Vital Signs - 8 hr 10/15/24 14:23 10/15/24 17:21 Temperature 97.6 F 98.1 F Pulse Rate 61 72 Respiratory Rate 18 18 Blood Pressure 132/70 136/67 Pulse Oximetry 97 99 Oxygen Delivery Method Room Air Room Air MDM - Extremity (Nontraumatic) <JANUSZ Pastor Last Filed: 10/15/24 19:07> MDM Narrative Medical decision making narrative: 69-year-old male presents to the ED with 1 day of ankle pain. Concern for fracture / dislocation versus musculoskeletal sprain/ strain of the left ankle versus other. Obtained an x-ray which shows no acute fracture. There is some swelling at the lateral malleolus. This clinically correlates to the area of tenderness and pain that patient endorses. It appears that patient has a musculoskeletal sprain/strain of the left ankle. Patient was Christos wrapped, recommend RICE, ibuprofen. Patient's right ankle appears normal with no signs of cellulitis. However, told patient that he could continue the clindamycin if this was simply a improvement from yesterday. Recommend that he follow-up with his PCP as soon as possible. ED return precautions discussed with patient. Patient verbalized understanding. Medical records reviewed: Yes Discharge Plan Departure Patient Disposition: Home Clinical Impression: Ankle sprain Qualifiers: Encounter type: initial encounter Involved ligament of ankle: unspecified ligament Laterality: left Qualified Code(s): S93.402A - Sprain of unspecified ligament of left ankle, initial encounter Instructions: DI for Ankle Sprain Activity Restrictions/Additional Instructions: You were evaluated in the ED today for left-sided ankle pain. Your x-ray shows no fractures or dislocations, but there is a small swelling of the lateral malleolus. This is most consistent with where you are experiencing the pain and is likely due to a musculoskeletal sprain /strain of your left ankle. Your ankle was Christos wrapped for healing and comfort. You may continue to do that. Rest, ice, Christos wrap, elevation, ibuprofen for the next 3-5 days are recommended until your symptoms improve. Please follow up with your PCP as soon as possible. Return to the ED if you have worsening symptoms, numbness, tingling, weakness. Prescriptions: No Action amlodipine 10 mg tablet 10 mg PO DAILY metformin 500 mg tablet extended release 24 hr 500 mg PO DAILY irbesartan 300 mg tablet 300 mg PO DAILY escitalopram oxalate 10 mg tablet 10 mg PO DAILY rosuvastatin 10 mg tablet 10 mg PO DAILY oxycodone 5 mg tablet 5 mg PO TID PRN (Reason: pain) Qty: 10 0RF Referrals: Ramakrishna Becerra MD [Primary Care Provider] - Stand Alone Forms: Patient Portal/API/Survey ED Sign-out <Renita Mott DO - Last Filed: 10/15/24 21:24> Cosign ED Attending Cosignature Attestation: I was available for consultation.
== END 2024-10-15 17:56 | disposition home or self-care (01) ==
PROVIDERS: Emergency Provider Student in an Organized Health Care Education/Training Program; PCP Family Medicine
DX: S93.402A Sprain of unspecified ligament of left ankle, initial encounter (principal)
CPT/HCPCS: 73610; 99281; 99283